=== PATIENT | female | born 1955 | race Caucasian/White ===

== ENCOUNTER → 2017-01-15 | Outpatient (CLI) | payer OTHER | LOC: CIMAGING 07:56 | PROVIDERS: ATTEND Family Medicine | DX: Z12.31 Encounter for screening mammogram for malignant neoplasm of breast (principal) | CPT/HCPCS: G0202 ==

== ENCOUNTER 2017-06-25 12:39 | Emergency (ER) | payer OTHER ==
[2017-06-25 12:53] VITALS: BP 131/77; PULSE 80; RESP 20; TEMP 98; O2SAT 95
--- NOTE | 2017-06-25 13:00 | EDPHY ---
H & P Stated Complaint: c/o LOC after hitting head under desk and back of wall Time Seen by Provider: 06/25/17 12:49 HPI/ROS: CHIEF COMPLAINT: Head injury HISTORY OF PRESENT ILLNESS: Patient is a 62-year-old female who was at work plugging something in under her desk, she works as a manager banking. When she stood up she hit the back of her head on the bottom of the desk. This surprised her greatly and she fell or leaned back into the wall behind her. She denies injuring herself when she leaned into the wall. She states that she felt somewhat dazed and slightly nauseous. No headache or neck pain. No seizure-like activity. No loss of consciousness. She did have a migraine earlier today and took some Maxalt around 10:30 this morning. She does not have a laceration or hematoma. REVIEW OF SYSTEMS: Constitutional: denies: chills, fever, recent illness, recent injury EENTM: denies: blurred vision, double vision, nose congestion Respiratory: denies: cough, shortness of breath Cardiac: denies: chest pain, irregular heart rate, lightheadedness, palpitations Gastrointestinal/Abdominal: See HPI denies: abdominal pain, diarrhea, vomiting , blood streaked stools Genitourinary: denies: dysuria, frequency, hematuria, pain Musculoskeletal: denies: joint pain, muscle pain Skin: denies: lesions, rash, jaundice, bruising Neurological: See HPI denies: numbness, paresthesia, tingling, dizziness, weakness Hematologic/Lymphatic: denies: blood clots, easy bleeding, easy bruising Immunologic/allergic: denies: HIV/AIDS, transplant EXAM: GENERAL: Well-appearing, well-nourished and in no acute distress. HEAD: Atraumatic, normocephalic. EYES: Pupils equal round and reactive to light, extraocular movements intact, sclera anicteric, conjunctiva are normal. ENT: TMs normal, nares patent, oropharynx clear without exudates. Moist mucous membranes. NECK: Normal range of motion, supple without lymphadenopathy or JVD. LUNGS: Breath sounds clear to auscultation bilaterally and equal. No wheezes rales or rhonchi. HEART: Regular rate and rhythm without murmurs, rubs or gallops. ABDOMEN: Soft, nontender, normoactive bowel sounds. No guarding, no rebound. No masses appreciated. BACK: No CVA tenderness, no spinal tenderness, step-offs or deformities EXTREMITIES: Normal range of motion, no pitting or edema. No clubbing or cyanosis. NEUROLOGICAL: Cranial nerves II through XII grossly intact. Normal speech, normal gait. 5/5 strength, normal movement in all extremities, normal sensation PSYCH: Normal mood, normal affect. SKIN: Warm, dry, normal turgor, no visible rashes or lesions. Source: Patient Exam Limitations: No limitations - Personal History Tetanus Vaccine Date: WITHIN 10 YRS - Medical/Surgical History Hx Asthma: No Hx Chronic Respiratory Disease: No Hx Diabetes: No Hx Cardiac Disease: No Hx Renal Disease: No Hx Cirrhosis: No Hx Alcoholism: No Hx HIV/AIDS: No Hx Splenectomy or Spleen Trauma: No Other PMH: hysterctomy knee surgeries, migraines. suspected WNV about 2002 - Family History Significant Family History: No pertinent family hx - Social History Smoking Status: Never smoked Alcohol Use: Sober Drug Use: None Constitutional: Initial Vital Signs Temperature (C) 36.6 C 06/25/17 12:49 Heart Rate 80 06/25/17 12:49 Respiratory Rate 20 06/25/17 12:49 Blood Pressure 131/77 H 06/25/17 12:49 O2 Sat (%) 95 06/25/17 12:49 O2 Delivery Mode Room Air Allergies/Adverse Reactions: levofloxacin [From Levaquin] Allergy (Intermediate, Verified 09/19/14 07:23) metronidazole [From Flagyl] Allergy (Intermediate, Verified 09/19/14 07:23) Metronidazole HCl [From Flagyl] Allergy (Intermediate, Verified 09/19/14 07:23) morphine Allergy (Intermediate, Verified 09/19/14 07:23) Hives cefixime [From Suprax] Allergy (Unknown, Verified 09/19/14 07:23) cortisone [Cortisone] Allergy (Unknown, Verified 09/19/14 07:23) erythromycin base [Erythromycin Base] Allergy (Unknown, Verified 09/19/14 07:23) gabapentin [From Neurontin] Allergy (Unknown, Verified 09/19/14 07:23) nicardipine HCl [From Cardene] Allergy (Unknown, Verified 09/19/14 07:23) ofloxacin [From Floxin] Allergy (Unknown, Verified 09/19/14 07:23) Penicillins Allergy (Unknown, Verified 09/19/14 07:23) Sulfa (Sulfonamide Antibiotics) [Sulfa(Sulfonamide Antibiotics)] Allergy ( Unknown, Verified 09/19/14 07:23) telithromycin [From KETEK] Allergy (Unknown, Verified 09/19/14 07:23) tetracycline [Tetracycline] Allergy (Unknown, Verified 09/19/14 07:23) BIAVIN Allergy (Unknown, Uncoded 11/12/11 07:10) COTVERA Allergy (Uncoded 11/12/11 07:10) Home Medications: Medication Instructions Recorded Acetaminophen/Codeine 300/30Mg 1 each PO Q6 11/12/11 [Tylenol #3 (RX)] Estrogens,Conjugated [Premarin 0.3 0.3 mg PO DAILY 11/12/11 MG (RX)] RIZATRIPTAN BENZOATE [Maxalt Commercial Representative] 10 mg PO 11/12/11 Aspirin 04/03/13 Colchicine [Colcrys] 0.6 mg PO AD #3 tablet 04/03/13 Xanax 04/03/13 Medical Decision Making ED Course/Re-evaluation: The patient has a normal exam. No laceration or contusion or crepitus. No neck tenderness. Her symptoms are consistent with a mild concussion. She did not lose consciousness. She denies injuries to her back or extremities. I offered to do a CT scan and we discussed its utility. I do not suspect a significant intracranial injury or fracture based on her history, symptoms and exam. At this point she and her decided to decline the CT scan. We discussed symptoms to watch for in case worsening. Patient and are happy with this and declines further workup or testing. They declined medication here in the ER. Differential Diagnosis: Partial list of the Differential diagnosis considered include but were not limited to; concussion, contusion and although unlikely based on the history and physical exam, I also considered fracture, intracranial injury, neck injury , back injury, seizure. I discussed these differential diagnoses and the plan with the patient as well as the usual and expected course. The patient understands that the diagnosis is provisional and that in medicine we are not always correct and that further workup is often warranted. Usual and customary warnings were given. All of the patient's questions were answered. The patient was instructed to return to the emergency department should the symptoms at all worsen or return, otherwise to followup with the physician as we discussed. Departure - Departure Disposition: Home, Routine, Self-Care Clinical Impression: Concussion Qualifiers: Encounter type: initial encounter Loss of consciousness presence/duration: without LOC Qualified Code(s): S06.0X0A - Concussion without loss of consciousness, initial encounter Condition: Fair Instructions: Concussion (ED) Additional Instructions: Return to activity gradually, sleep as much as possible today. Referrals: Emmett Petit MD [Primary Care Provider] - 2-3 days, if not improved
== END 2017-06-25 13:21 | disposition home or self-care (01) ==
LOC: CED 12:39
DX: S06.0X0A Concussion without loss of consciousness, initial encounter (principal); W22.8XXA Striking against or struck by other objects, initial encounter; Y92.69 Other specified industrial and construction area as the place of occurrence of the external cause; Y99.0 Civilian activity done for income or pay; Y93.89 Activity, other specified